=== PATIENT | male | born 1985 | race Caucasian/White ===

== ENCOUNTER 2017-01-28 22:03 | Emergency (ER) | payer SELFPAY ==
[2017-01-28 22:52] LABS: APPEARANCE CLEAR (CLEAR); BILIRUBIN NEGATIVE (NEGATIVE); COLOR STRAW (YELLOW); GLUCOSE NEGATIVE (NEGATIVE); KETONE NEGATIVE (NEGATIVE); LEUKOCYTE ESTERASE NEGATIVE (NEGATIVE); NITRITE NEGATIVE (NEGATIVE); PROTEIN NEGATIVE (NEGATIVE); UROBILINOGEN NORMAL (NORMAL)
== END 2017-01-28 22:50 | disposition left against medical advice (07) ==
LOC: D.ER 22:03
PROVIDERS: Family Medicine
DX: R35.0 Frequency of micturition (principal)

== ENCOUNTER 2017-07-14 05:06 | Emergency (ER) | payer SELFPAY | END 2017-07-14 06:54 | disposition home or self-care (01) | LOC: D.ER 05:06 | DX: S00.03XA Contusion of scalp, initial encounter (principal); W19.XXXA Unspecified fall, initial encounter; Y93.89 Activity, other specified; Y92.029 Unspecified place in mobile home as the place of occurrence of the external cause ==

== ENCOUNTER 2017-07-18 08:14 | Emergency (ER) | payer SELFPAY | END 2017-07-18 09:05 | disposition home or self-care (01) | LOC: D.ER 08:14 | DX: J01.90 Acute sinusitis, unspecified (principal) ==

== ENCOUNTER 2018-06-29 07:41 | Emergency (ER) | payer MEDICAID ==
[~2018-06-29] VITALS: Ht 200.7 cm; Wt 138.6 kg
[2018-06-29 07:46] VITALS: BP 151/104; Ht 200.7 cm; Wt 138.6 kg
[2018-06-29] MEDS ORDERED: NORCO 10-325 TA1 TAB PO (09:01)
[2018-06-29] MEDS ORDERED: CLEOCIN HCL300 MG PO (09:01)
== END 2018-06-29 09:08 | disposition home or self-care (01) ==
LOC: D.ER 07:41
DX: S02.5XXA Fracture of tooth (traumatic), initial encounter for closed fracture (principal); X58.XXXA Exposure to other specified factors, initial encounter; Y93.89 Activity, other specified; Y92.89 Other specified places as the place of occurrence of the external cause; K04.7 Periapical abscess without sinus; K02.9 Dental caries, unspecified; R68.84 Jaw pain; I10 Essential (primary) hypertension; F17.200 Nicotine dependence, unspecified, uncomplicated

== ENCOUNTER 2018-07-13 12:02 | Emergency (ER) | payer MEDICAID ==
[~2018-07-13] VITALS: Ht 200.7 cm; Wt 138.6 kg
[~2018-07-13 12:02] MED LIST: CLEOCIN HCL300 MG PO; NORCO 10-325 TA1 TAB PO
[2018-07-13 12:09] VITALS: Ht 200.7 cm; Wt 138.6 kg
[2018-07-13] MEDS ORDERED: CATAPRES0.1 MG (12:10)
[2018-07-13] MEDS ORDERED: BUPROPION HCL75 MG (12:10)
[2018-07-13] MEDS ORDERED: XANAX0.5 MG (12:10)
[2018-07-13] MEDS ORDERED: TRAZODONE HCL300 MG (12:10)
[2018-07-13] MEDS ORDERED: METOPROLOL TART50 MG (12:11)
[2018-07-13 14:02] VITALS: BP 156/87
== END 2018-07-13 14:03 | disposition home or self-care (01) ==
LOC: D.ER 12:02
DX: F41.0 Panic disorder [episodic paroxysmal anxiety] (principal); F41.9 Anxiety disorder, unspecified; I10 Essential (primary) hypertension; F17.200 Nicotine dependence, unspecified, uncomplicated

== ENCOUNTER 2018-10-31 05:00 | Emergency (ER) | payer MEDICAID ==
[~2018-10-31] VITALS: Ht 200.7 cm; Wt 136.4 kg
[~2018-10-31 05:00] MED LIST changes: +BUPROPION HCL75 MG; +CATAPRES0.1 MG; +METOPROLOL TART50 MG; +TRAZODONE HCL300 MG; +XANAX0.5 MG
[2018-10-31 05:05] VITALS: Ht 200.7 cm; Wt 136.4 kg
[2018-10-31] MEDS ORDERED: LOPERAMIDE HCL2 MG PO (05:19)
[2018-10-31 05:29] LABS: BASOPHILS 0.6 % (0-2); EOSINOPHILS 0.9 % (0-7); HEMOGLOBIN 17.2 g/dL (13.5-17.5); IMMATURE GRANULOCYTES 0.3 % (0-5); LYMPHOCYTES 33.7 % (15-50); MCH 32.6 pg (26.0-34.0); MCHC 35.1 g/dL (31.0-37.0); MEAN PLATELET VOLUME 10.7 fL (7.4-10.4); MONOCYTES 7.1 % (2-11); NEUTROPHILS 57.4 % (40-80); PLATELET COUNT 151 10x3/uL (130-400); RBC 5.27 10x6/uL (4.20-6.10); WBC 8.6 10x3/uL (4.8-10.8)
[2018-10-31] MEDS ORDERED: LISINOPRIL20 MG PO (05:38)
[2018-10-31] MEDS ORDERED: CATAPRES0.1 MG PO (05:38)
[2018-10-31] MEDS ORDERED: METOPROLOL TART25 MG PO (05:38)
[2018-10-31 06:28] LABS: ALBUMIN 3.4 g/dL (3.4-5.0); ALKALINE PHOSPHATASE 73 U/L (46-116); ALT (SGPT) 138 U/L (10-68); BILIRUBIN - TOTAL 0.99 mg/dL (0.2-1.3); CALC OSMOLALITY 280 mosm/kg (275-300); CALCIUM 7.7 mg/dL (8.5-10.1); CARBON DIOXIDE 24.6 mmol/L (21.0-32.0); CHLORIDE - SERUM 100 mmol/L (98-107); CREATININE - SERUM 0.9 mg/dL (0.6-1.3); GLUCOSE 120 mg/dL (74-106); LIPASE 239 U/L (73-393); POTASSIUM - SERUM 4.1 mmol/L (3.5-5.1); PROTEIN - SERUM 7.8 g/dL (6.4-8.2); SODIUM 140 mmol/L (136-145); UREA NITROGEN 15 mg/dL (7-18); eGFR NON AFRICAN AMERICAN > 90 mL/min (90-120)
[2018-10-31 06:41] VITALS: BP 187/114
== END 2018-10-31 06:55 | disposition home or self-care (01) ==
LOC: D.ER 05:00
PROVIDERS: Family Medicine
DX: K52.9 Noninfective gastroenteritis and colitis, unspecified (principal); R94.5 Abnormal results of liver function studies; I10 Essential (primary) hypertension

== ENCOUNTER 2018-11-15 22:02 | Emergency (ER) | payer MEDICAID ==
[~2018-11-15] VITALS: Ht 200.7 cm; Wt 145.5 kg
[~2018-11-15 22:02] MED LIST changes: +CATAPRES0.1 MG PO; +LISINOPRIL20 MG PO; +LOPERAMIDE HCL2 MG PO; +METOPROLOL TART25 MG PO
[2018-11-15 22:09] VITALS: Ht 200.7 cm; Wt 145.5 kg
[2018-11-15 22:22] LABS: BASOPHILS 0.3 % (0-2); EOSINOPHILS 0.3 % (0-7); HEMATOCRIT 50.2 % (42.0-54.0); HEMOGLOBIN 17.6 g/dL (13.5-17.5); IMMATURE GRANULOCYTES 0.1 % (0-5); MCH 32.4 pg (26.0-34.0); MCHC 35.1 g/dL (31.0-37.0); MCV 92.4 fL (80.0-100.0); MEAN PLATELET VOLUME 10.3 fL (7.4-10.4); MONOCYTES 7.2 % (2-11); NEUTROPHILS 54.1 % (40-80); PLATELET COUNT 178 10x3/uL (130-400); RBC 5.43 10x6/uL (4.20-6.10); RDW 13.2 % (11.5-14.5)
[2018-11-15 22:32] LABS: APTT 24.8 SECONDS (22.8-39.4); INR 0.98 (0.85-1.17); PROTIME 12.5 SECONDS (11.6-15.0)
[2018-11-15 22:35] LABS: ALBUMIN 3.3 g/dL (3.4-5.0); ALKALINE PHOSPHATASE 77 U/L (46-116); ALT (SGPT) 119 U/L (10-68); BILIRUBIN - TOTAL 0.48 mg/dL (0.2-1.3); CALC OSMOLALITY 287 mosm/kg (275-300); CARBON DIOXIDE 28.5 mmol/L (21.0-32.0); CHLORIDE - SERUM 103 mmol/L (98-107); GLUCOSE 110 mg/dL (74-106); POTASSIUM - SERUM 3.6 mmol/L (3.5-5.1); PROTEIN - SERUM 7.6 g/dL (6.4-8.2); SODIUM 144 mmol/L (136-145); UREA NITROGEN 13 mg/dL (7-18); eGFR NON AFRICAN AMERICAN > 90 mL/min (90-120)
[2018-11-15 22:46] LABS: CKMB 2.8 U/L (0.0-3.6); CREATINE KINASE 168 UL (21-232); MAGNESIUM - SERUM 1.9 mg/dL (1.8-2.4); TROPONIN-I < 0.017 ng/mL (0.000-0.060)
[2018-11-15] MEDS ORDERED: PREVACID30 MG PO (23:59)
[2018-11-16 02:46] VITALS: BP 159/99
== END 2018-11-16 02:46 | disposition home or self-care (01) ==
LOC: D.ER 22:02
PROVIDERS: Family Medicine
DX: F10.10 Alcohol abuse, uncomplicated (principal); F41.9 Anxiety disorder, unspecified; K21.9 Gastro-esophageal reflux disease without esophagitis; K29.60 Other gastritis without bleeding; I10 Essential (primary) hypertension

== ENCOUNTER 2020-05-19 08:53 | Emergency (ER) | payer SELFPAY ==
[~2020-05-19] VITALS: Ht 200.7 cm; Wt 133.2 kg
[~2020-05-19 08:53] MED LIST changes: +PREVACID30 MG PO
[2020-05-19 09:02] VITALS: BP 164/100; Ht 200.7 cm; Wt 133.2 kg
[2020-05-19] MEDS ORDERED: PENICILLIN V P500 MG PO (09:56)
[2020-05-19] MEDS ORDERED: DICLOFENAC SODI50 MG PO (09:56)
== END 2020-05-19 10:20 | disposition home or self-care (01) ==
LOC: D.ER 08:53
DX: K08.89 Other specified disorders of teeth and supporting structures (principal); I10 Essential (primary) hypertension